=== PATIENT | male | born 1960 | race Caucasian/White ===

== ENCOUNTER 2023-01-08 14:04 | Inpatient (IN) ==
[2023-01-08 14:59] LABS: Basophils # (auto) 0.09 K/uL (0-0.2); Basophils % (auto) 0.7 %; Eosinophils # (auto) 0.08 K/uL (0-0.50); Eosinophils % (auto) 0.7 %; Hematocrit (blood only) 49.4 % (42.0-52.0); Hemoglobin 17.7 g/dl (14.0-18.0); Immature Granulocytes # (auto) 0.05 K/uL (0.01-0.20); Immature Granulocytes % (auto) 0.4 %; Lymphocytes # (auto) 2.53 K/uL (1.2-3.4); Lymphocytes % (auto) 20.7 %; Mean Corpuscular Hemoglobin 30.3 pg (25.0-34.0); Mean Corpuscular Hgb Conc 35.8 g/dL (32.0-36.0); Mean Corpuscular Volume 84.4 fL (80.0-100.0); Mean Platelet Volume 9.8 fL (9.4-12.4); Monocytes # (auto) 0.76 K/uL (0.11-0.59); Monocytes % (auto) 6.2 %; Neutrophils # (auto) 8.72 K/uL (1.40-6.50); Neutrophils % (auto) 71.3 %; Platelet Count 270 K/uL (130-400); RDW Coefficient of Variation 13.4 % (11.5-14.5); RDW Standard Deviation 41.5 fL (36.4-46.3); Red Blood Count 5.85 M/uL (4.70-6.10); White Blood Count 12.23 K/ul (4.8-10.8)
[2023-01-08 15:18] LABS: D Dimer 200 ug/L FEU (0-500)
[2023-01-08 15:32] LABS: Troponin I High Sensitivity 35.8 pg/ml (0-20)
[2023-01-08 15:35] LABS: Albumin Level 4.8 gm/dl (3.4-5.0); Bilirubin,Total 0.9 mg/dl (0.2-1.0); Calcium 9.5 mg/dl (8.6-10.3); Potassium 3.7 mmol/L (3.5-5.1)
--- NOTE | 2023-01-08 15:38 | Emergency Department Note ---
Impression & Plan Non-ST elevated myocardial infarction ED Provider Note INFORMANT: Patient ED PROVIDER(S): Umberto Thayer MD CHIEF COMPLAINT: Chest pain PLAN: Disposition: Admitted Condition: Good Outpatient prescription management: none Referral: None MEDICAL DECISION MAKING: Patient presented because of chest pain. Work-up was initiated. ECG not show any ischemia. Chest x-ray was negative. The patient's CBC and chemistry panel are unremarkable. The patient's LFTs and lipase negative. The patient did have a cardiac troponin performed and this was elevated. Given his chest pain issues and elevated troponin this is concerning for non-ST elevation CT. D-dimer negative. The patient was treated with Nitropaste, aspirin, IV Lopressor, oral metoprolol, and I consulted with cardiology. Discussed the case with Dr. Ge. He recommended anticoagulation with IV heparin, admission and further management in the hospital. Discussed with the patient and family and they were in agreement. [facility] Patient was evaluated in the ER and admitted for further management. Discussed with health care manager After review of the information above and other included data, I feel the patient requires admission. Triage Nursing notes reviewed and agree them. Vital Signs: reviewed and remarkable for mild hypertension Prior /Outside records reviewed: none Differential diagnosis: Cardiac ischemia, aortic dissection, pulmonary embolism, pneumothorax, pneumonia, pericarditis, myocarditis, esophageal rupture, GERD, cholecystitis, pancreatitis, musculoskeletal, as well as other pathologies. Diagnostics, as interpreted by me: ECG: Twelve-lead ECG reveals a sinus tachycardia [address] elevation or depression. No PACs or PVCs. Cardiac Monitoring: Cardiac monitoring ordered by me: The patient was placed on continuous cardiac monitoring and observed. It revealed a normal sinus rhythm at 75 beats per minute without ectopy or evidence of dysrhythmia. Medical decision rules: none Imaging studies: Chest x-ray. Findings: A chest x-ray was performed and revealed no pneumothorax, effusion, infiltrate, pulmonary edema, free air under the diaphragm, or wide mediastinum. Impression: No acute disease. HPI: The patient is a 62 year old male who presents to the Emergency Room with complaints of exertional chest pain. This started this morning around 10 and is now resolved. The patient also notes the following associated symptoms, SOB, palpitations. The patient has rested for relieving factors. Current pain is rated as 0/10. Pt denies LOC, headache, fevers, chills, diaphoresis, visual changes, neck pain, nausea, vomiting, abdominal pain, back pain, melena, hematochezia, urinary symptoms, numbness, weakness, lymphadenopathy, rash, or other complaints. PAST MEDICAL HISTORY: See Below, HTN PAST SURGICAL HISTORY: See Below, SOCIAL HISTORY: See Below, non-smoker HOME MEDICATIONS: See Below ALLERGIES: See Below VITALS: See Below PHYSICAL EXAMINATION: GENERAL: Awake, alert, well-appearing, in no distress HENT: Normocephalic, atraumatic. Oropharynx unremarkable. EYES: Normal conjunctiva. Sclera non-icteric. NECK: Inspection normal. Non-tender. Supple. No nuchal rigidity. FROM. No masses. RESPIRATORY: Clear to auscultation. No wheezes. No rales. Normal respiratory effort. CARDIAC: Normal rate. Normal rhythm. No murmurs. No rubs. Extremities warm and well perfused. Pulses equal. No JVD. GI: Soft, non-distended. No tenderness to palpation. No rebound or guarding. No masses. RECTAL: Deferred. MUSCULOSKELETAL: Atraumatic. Chest examination reveals no tenderness. The back is symmetrical on inspection without obvious abnormality. There is no CVA tenderness to palpation. No joint edema. LOWER EXTREMITIES: Calves are equal size bilaterally and non-tender. No edema. No discoloration. NEURO: Normal sensorium. No sensory or motor deficits noted. SKIN: No rash or jaundice noted. CRITICAL CARE: I have personally spent greater than 30 minutes of critical care time in the direct management of this patient. This includes bedside care, interpretation of diagnostic studies, and testing, discussion with consultants, patient, and family members, and other required patient management activities. This 30 minutes is in excess of all separately billable procedures. Past Med/Surg History Medical History (Updated 01/08/23 @ 22:10 by Umberto Thayer MD) Depression HLD (hyperlipidemia) Surgical History (Updated 01/08/23 @ 17:12 by Ilana Randolph PA-C) No pertinent past surgical history Family History Grandfather (Paternal) , in mid 30s Myocardial infarction Sudden Social History (Updated 01/08/23 @ 17:12 by Ilana Randolph PA-C) Smoking Status: Never smoker Hx Alcohol Use: No Hx Substance Use: No Preferred Language: Surinamese Communication Ability: Effective Companion Caregiver Required: No Beliefs That Will Affect Care: None Current Living Situation: Family Feels Safe at Home: Yes Safety Concerns: Feels Safe At This Time Assistive Devices: None Allergies Allergies Allergy/AdvReac Type Severity Reaction Status Date / Time No Known Allergies Allergy Unverified 01/08/23 15:07 Home Meds Home Medications Medication Instructions Recorded Confirmed Prevagen 1 tab PO QAM 01/08/23 01/08/23 fluoxetine 10 mg capsule 10 mg PO QAM 01/08/23 01/08/23 Results & Data (ED) Vital Signs Vital Signs - 24 hr 01/08/23 14:10 01/08/23 14:28 01/08/23 14:26 Temperature 36.6 C Temperature Source Temporal Artery Scan Pulse Rate 106 H 97 H 93 H Pulse Rate from SpO2 Sensor 94 H Respiratory Rate 18 16 Respiratory Effort / Characteristics Non-Labored Spontaneous Respiratory Depth Normal Respiratory Pattern Regular Blood Pressure 163/107 H Blood Pressure Mean 125 Blood Pressure Position Sitting Pulse Oximetry 95 96 Oxygen Delivery Method Room Air Sepsis Recent Fever Within 48 Hours No Sepsis New/Unexplained Change in Mental Status No Sepsis Action Taken by Nursing No Action Required 01/08/23 14:30 01/08/23 15:00 01/08/23 15:07 Temperature Temperature Source Pulse Rate 94 H 89 94 H Pulse Rate from SpO2 Sensor 95 H 91 H 95 H Respiratory Rate 19 17 20 Respiratory Effort / Characteristics Respiratory Depth Respiratory Pattern Blood Pressure Blood Pressure Mean Blood Pressure Position Pulse Oximetry 95 95 95 Oxygen Delivery Method Sepsis Recent Fever Within 48 Hours Sepsis New/Unexplained Change in Mental Status Sepsis Action Taken by Nursing 01/08/23 15:07 01/08/23 15:44 01/08/23 15:30 Temperature Temperature Source Pulse Rate 94 H Pulse Rate from SpO2 Sensor Respiratory Rate Respiratory Effort / Characteristics Respiratory Depth Respiratory Pattern Blood Pressure 167/104 H 167/104 H 172/113 H Blood Pressure Mean 125 132 Blood Pressure Position Pulse Oximetry Oxygen Delivery Method Sepsis Recent Fever Within 48 Hours Sepsis New/Unexplained Change in Mental Status Sepsis Action Taken by Nursing 01/08/23 15:30 01/08/23 15:49 01/08/23 15:50 Temperature Temperature Source Pulse Rate 95 H 92 H Pulse Rate from SpO2 Sensor 90 92 H Respiratory Rate 18 16 Respiratory Effort / Characteristics Respiratory Depth Respiratory Pattern Blood Pressure 176/112 H Blood Pressure Mean 133 Blood Pressure Position Pulse Oximetry 96 96 Oxygen Delivery Method Sepsis Recent Fever Within 48 Hours Sepsis New/Unexplained Change in Mental Status Sepsis Action Taken by Nursing 01/08/23 16:00 01/08/23 16:00 01/08/23 14:46 Temperature Temperature Source Pulse Rate 77 80 Pulse Rate from SpO2 Sensor 77 Respiratory Rate 17 Respiratory Effort / Characteristics Respiratory Depth Respiratory Pattern Blood Pressure 157/108 H Blood Pressure Mean 124 Blood Pressure Position Pulse Oximetry 95 Oxygen Delivery Method Sepsis Recent Fever Within 48 Hours Sepsis New/Unexplained Change in Mental Status Sepsis Action Taken by Nursing Laboratory Data 01/08/23 14:22 01/08/23 14:22 Lab Results 01/08/23 01/08/23 01/08/23 Range/Units 14:22 14:22 14:22 WBC 12.23 H (4.8-10.8) K/ul RBC 5.85 (4.70-6.10) M/uL Hgb 17.7 (14.0-18.0) g/dl Hct 49.4 (42.0-52.0) % MCV 84.4 (80.0-100.0) fL MCH 30.3 (25.0-34.0) pg MCHC 35.8 (32.0-36.0) g/dL RDW Std Deviation 41.5 (36.4-46.3) fL RDW Coeff of Georgette 13.4 (11.5-14.5) % Plt Count 270 (130-400) K/uL MPV 9.8 (9.4-12.4) fL Immature Gran % (Auto) 0.4 % Neut % (Auto) 71.3 % Lymph % (Auto) 20.7 % [place] % (Auto) 6.2 % Eos % (Auto) 0.7 % Baso % (Auto) 0.7 % Neut # (Auto) 8.72 H (1.40-6.50) K/uL Lymph # (Auto) 2.53 (1.2-3.4) K/uL [place] # (Auto) 0.76 H (0.11-0.59) K/uL Eos # (Auto) 0.08 (0-0.50) K/uL Baso # (Auto) 0.09 (0-0.2) K/uL Immature Gran # (Auto) 0.05 (0.01-0.20) K/uL D-Dimer 200 (0-500) ug/L FEU Sodium 137 (136-145) mmol/L Potassium 3.7 (3.5-5.1) mmol/L Chloride 103 (98-107) mmol/L Carbon Dioxide 25 (21-32) mmol/L Anion Gap 9 (3-11) BUN 14 (6-23) mg/dl Creatinine 0.90 (0.6-1.4) mg/dl Est Cr Clr Drug Dosing 90.3 ml/min Est GFR ( Amer) 104.2 ml/min Est GFR (Non-Af Amer) 89.9 ml/min BUN/Creatinine Ratio 15.6 (10-20) Glucose 106 H (70-99(Fasting)) mg/dl Calcium 9.5 (8.6-10.3) mg/dl Total Bilirubin 0.9 (0.2-1.0) mg/dl AST 19 (13-39) U/L ALT 23 (7-52) U/L Alkaline Phosphatase 66 (34-104) U/L Troponin I High Sens 35.8 H (0-20) pg/ml Total Protein 7.9 (6.0-8.3) gm/dl Albumin 4.8 (3.4-5.0) gm/dl Globulin 3.1 (2.5-4.0) gm/dl Albumin/Globulin Ratio 1.5 (0.9-2) Lipase 13 (11-82) U/L SARS-CoV-2, RNA, NAAT (NEGATIVE) 01/08/23 Range/Units 15:08 WBC (4.8-10.8) K/ul RBC (4.70-6.10) M/uL Hgb (14.0-18.0) g/dl Hct (42.0-52.0) % MCV (80.0-100.0) fL MCH (25.0-34.0) pg MCHC (32.0-36.0) g/dL RDW Std Deviation (36.4-46.3) fL RDW Coeff of Georgette (11.5-14.5) % Plt Count (130-400) K/uL MPV (9.4-12.4) fL Immature Gran % (Auto) % Neut % (Auto) % Lymph % (Auto) % [place] % (Auto) % Eos % (Auto) % Baso % (Auto) % Neut # (Auto) (1.40-6.50) K/uL Lymph # (Auto) (1.2-3.4) K/uL [place] # (Auto) (0.11-0.59) K/uL Eos # (Auto) (0-0.50) K/uL Baso # (Auto) (0-0.2) K/uL Immature Gran # (Auto) (0.01-0.20) K/uL D-Dimer (0-500) ug/L FEU Sodium (136-145) mmol/L Potassium (3.5-5.1) mmol/L Chloride (98-107) mmol/L Carbon Dioxide (21-32) mmol/L Anion Gap (3-11) BUN (6-23) mg/dl Creatinine (0.6-1.4) mg/dl Est Cr Clr Drug Dosing ml/min Est GFR ( Amer) ml/min Est GFR (Non-Af Amer) ml/min BUN/Creatinine Ratio (10-20) Glucose (70-99(Fasting)) mg/dl Calcium (8.6-10.3) mg/dl Total Bilirubin (0.2-1.0) mg/dl AST (13-39) U/L ALT (7-52) U/L Alkaline Phosphatase (34-104) U/L Troponin I High Sens (0-20) pg/ml Total Protein (6.0-8.3) gm/dl Albumin (3.4-5.0) gm/dl Globulin (2.5-4.0) gm/dl Albumin/Globulin Ratio (0.9-2) Lipase (11-82) U/L SARS-CoV-2, RNA, NAAT NEGATIVE (NEGATIVE) Administered Medications Heparin Sodium/Dextrose (Heparin Sodium/Dextrose) 25,000 units in 500 mls @ 18 mls/hr IV .Q24H [facility]; Protocol Stop: 02/07/23 16:14 Last Titration: 01/08/23 18:52 Dose: 900 units/hr, 18 mls/hr Documented By: CRISTIAN Co-signed By: ABL Admin: 01/08/23 16:41 Dose: 900 units/hr, 18 mls/hr Documented By: [id number] Co-signed By: GEMA Metoprolol Tartrate (Metoprolol Tartrate 25 Mg Tab) 25 mg PO BID [facility] Stop: 02/07/23 20:59 Last Admin: 01/08/23 20:28 Dose: 25 mg Documented By: ABL Discontinued Medications Aspirin (Aspirin Chew 324 Mg) 324 mg PO NOW STA Stop: 01/08/23 15:41 Last Admin: 01/08/23 15:44 Dose: 324 mg Documented By: [id number] Heparin Sodium (Porcine) (Heparin Sod (Porcine) 1000 Unit/Ml) 1 units IV NOW ONE Stop: 01/08/23 16:13 Last Admin: 01/08/23 16:45 Dose: Not Given Documented By: [id number] Heparin Sodium (Porcine) (Heparin Sod (Porcine) 1000 Unit/Ml) 4,000 units IV NOW ONE; Protocol Stop: 01/08/23 16:46 Last Admin: 01/08/23 16:45 Dose: 4,000 units Documented By: [id number] Co-signed By: GEMA Metoprolol Tartrate (Metoprolol Tartrate 1 Mg/Ml Vial) 2.5 mg IV NOW STA Stop: 01/08/23 15:41 Last Admin: 01/08/23 15:44 Dose: 2.5 mg Documented By: [id number] Metoprolol Tartrate (Metoprolol Tartrate 25 Mg Tab) 25 mg PO NOW STA Stop: 01/08/23 15:57 Last Admin: 01/08/23 16:31 Dose: 25 mg Documented By: [id number] Nitroglycerin (Nitroglycerin 2% Ointment 30gm Tube) 0.5 inch EXT NOW STA Stop: 01/08/23 15:41 Last Admin: 01/08/23 15:45 Dose: 0.5 inch Documented By: [id number] Imaging Data Radiologist's Impression: Chest X-Ray 01/08/23 14:46 XR chest 1V portable HISTORY: 62 years-old Male Chest pain, nonspecific COMPARISON: None TECHNIQUE: AP view of the chest FINDINGS: Cardiac silhouette is upper limits of normal in size. Mild subsegmental bibasilar atelectasis. There is no pneumothorax, pleural effusion, lobar airspace consolidation or overt pulmonary edema. Degenerative changes of the shoulders and spine. IMPRESSION: No acute process. ACT 112: Negative or not required by law. The above report was generated using voice recognition software. It may contain grammatical, syntax or spelling errors. Electronically signed by: Roddy Atkins M.D. 01/08/2023 3:35 PM Discharge Plan Visit Data Chief Complaint: Cardiac Assessment Stated Complaint: HIGH HEART RATE, CHEST PAIN ED Provider: Umberto Thayer Discharge Problem: Non-ST elevated myocardial infarction Patient Disposition: Admitted As Inpatient Discharge Instructions Interventions: ED Discharge Assessment Last Done: 01/08/23 18:15
[2023-01-08] MEDS ORDERED: ASPIRIN CHEW 324 MG PO STA (15:40)
[2023-01-08] MEDS ORDERED: METOPROLOL TARTRATE 1 MG/ML VIAL IV STA (15:40)
[2023-01-08] MEDS ORDERED: NITROGLYCERIN 2% OINTMENT 30GM TUBE EXT STA (15:40)
[2023-01-08 15:41] LABS: Albumin Globulin Ratio 1.5 (0.9-2); BUN Creatinine Ratio 15.6 (10-20); Creatinine Clr Calc Pharmacy 90.3 ml/min; Est GFR (African American) 104.2 ml/min; Est GFR (Non-African American) 89.9 ml/min; Globulin 3.1 gm/dl (2.5-4.0); Total Protein 7.9 gm/dl (6.0-8.3)
[2023-01-08] MEDS ORDERED: METOPROLOL TARTRATE 25 MG TAB PO STA (15:56)
[2023-01-08] MEDS ORDERED: Heparin IV Adult Wt-Based Low-Dose WITH Bolus Protocol STA (15:57)
[2023-01-08] MEDS ORDERED: HEPARIN SODIUM/DEXTROSE 25,000 UNITS/500 ML BAG IV SCH (16:15)
[2023-01-08] MEDS: HEPARIN SOD (PORCINE) 1000 UNIT/ML IV ONE ×2 (16:43→16:45)
[2023-01-08] MEDS ORDERED: HEPARIN SOD (PORCINE) 1000 UNIT/ML IV ONE (16:45)
--- NOTE | 2023-01-08 16:56 | History & Physical Report ---
Date of Service January 08, 2023 Assessment & Plan (1) Chest pain, exertional: (2) Elevated troponin: (3) Elevated blood pressure reading: (4) HLD (hyperlipidemia): (5) Depression: Plan This is a 62-year-old male who has significant past medical history of hyperlipidemia and recurrent major depressive disorder who presents to ED secondary to exertional chest pain x2 to 3 days. Initial EKG sinus tach w/o ST t wave changes, trop mildly bumped @35.8. Significant elevation in blood pressure. Pt was to have outpatient stress test in a few weeks. Will admit for possible NSTEMI. Exertional chest pain, now resolved Elevated blood pressure reading Elevated troponin admit to PCU pt started on IV heparin in ED due to concern for NSTEMI pt chest pain free trend trops, ecg, prn nitro echocardiogram start metoprolol tartrate 25mg bid per cards monitor blood pressure closely, in OP setting BP 130s-140s/90s, likely will need antihypertensive, will wait til pt gets to floor and monitor NPO after midnight for possible cath HLD pt not on antihyperlipidemic outpt labs show elevated total chol and LDL, likely to need statin obtain fasting lipid panel in a.m. Depression mood stable continue prozac DVT ppx: IV heparin Dispo: PCU, possible cath in a.m. FULL CODE PCP: Nyasia A total of 75 minutes was spent with greater than 50% of that time personally viewing all current laboratory work and diagnostic imaging studies obtained in the ED. Additionally, I was able to view the patients past medication reconciliation and history with direct visualization in the patients chart. Included in the time above, a portion of that time was spent assessing the patient while discussing and collaborating with specialists, if necessary, and making medical decision making on treatment plan. All of the above was collaborated with Dr. Duque. Please see addendum for further details. History of Present Illness Chief Complaint: exertional chest pain x 2-3 days. Primary Care Provider: Wilman Murrell MD This is a 62-year-old male who has significant past medical history of hyperlipidemia and recurrent major depressive disorder who presents to ED secondary to exertional chest pain x2 to 3 days. Patient's father is at bedside. He states that 2 to 3 weeks ago he developed URI symptoms. He was seen and evaluated by PCP and completed a course of azithromycin approximately 5 days ago. He states over the last 2 to 3 days he has been experiencing exertional chest pain. Typically onset will begin after walking approximately 50 feet and chest pain will resolve whenever he sits for several seconds. Chest pain never occurs at rest. Chest pain is substernal and left side of his chest but nonradiating. Currently he is chest pain-free and describes it as a, "pressure." He does get occasional shortness of breath but not consistently with exertion. He denies any fever, chills, sweats, lightheadedness, dizziness, nausea, diaphoresis, URI symptoms, abdominal pain, changes bowel or urinary habits. He is otherwise fairly healthy at baseline and only takes an antidepressant. He denies any family history of heart disease. He is a non- smoker and a nondrinker. His grandfather did pass away in his 30s of heart attack. His father also has a pacemaker and atrial fibrillation. In ED patient remained hemodynamically stable although he was significantly hypertensive and tachycardic. He did have mild elevation in troponin at 35.8. Chest x-ray was negative for acute process. EKG revealed sinus tachycardia but no ST or T wave change. In ED he received full-strength aspirin, 2.5 mg of IV Lopressor, nitroglycerin paste and started on heparin drip. Allergies Allergy/AdvReac Type Severity Reaction Status Date / Time No Known Allergies Allergy Unverified 01/08/23 15:07 Home Medications Medication Instructions Recorded Confirmed Type Prevagen 1 tab PO QAM 01/08/23 01/08/23 History fluoxetine 10 mg capsule 10 mg PO QAM 01/08/23 01/08/23 History Past Med/Surg History Medical History (Updated 01/08/23 @ 17:29 by Ilana Randolph PA-C) Depression HLD (hyperlipidemia) Surgical History (Updated 01/08/23 @ 17:12 by Ilana Randolph PA-C) No pertinent past surgical history Family History Grandfather (Paternal) , in mid 30s Myocardial infarction Sudden Social History (Updated 01/08/23 @ 17:12 by Ilana Randolph PA-C) Smoking Status: Never smoker Hx Alcohol Use: No Hx Substance Use: No Preferred Language: Cape Verdean Feels Safe at Home: Yes Review of Systems Review of Systems: All systems reviewed & are unremarkable except as noted in HPI & below Physical Exam Physical Exam: Constitutional: WD/WN, vitals as above, NAD, sitting up in bed, pleasant, conversing easily Head: Normocephalic, Atraumatic Eyes: PERRL, conjunctivae normal, anicteric sclerae ENMT: external ear and nose normal, oropharynx normal Neck: trachea midline, no thyromegaly normal visual inspection Respiratory: normal respiratory effort, lungs clear to auscultation, no wheeze, rales, rhonchi. Normal insp/exp effort, no accessory muscle use Cardiovascular: RRR, no murmur, no edema Vessels: no JVD or carotid bruit Chest: normal inspection of chest, chest pain nonreproducible Abdomen: normal bowel sounds, soft, nontender, no hepatosplenomegaly Musculoskeletal: no cyanosis or clubbing, extremities motor strength 5/5 Skin: no rashes, warm and dry normal turgor Neurologic: PERRL, EOMI, accommodation nl, no face palsy, no dysarthria CN's II-XI intact bilaterally and moves all extremities Psychiatric: A+Ox3, euthymic affect Lymphatic: no cervical or axillary lymphadenopathy : deferred Results & Data Results & Data Vital Signs (Past 12 Hours) Vital Signs Temp Pulse Resp BP Pulse Ox O2 Del Method 01/08/23 16:00 77 17 95 01/08/23 16:00 157/108 H 01/08/23 15:50 176/112 H 01/08/23 15:49 92 H 16 96 01/08/23 15:30 95 H 18 96 01/08/23 15:30 172/113 H 01/08/23 15:44 94 H 167/104 H 01/08/23 15:07 167/104 H 01/08/23 15:07 94 H 20 95 01/08/23 15:00 89 17 95 01/08/23 14:30 94 H 19 95 01/08/23 14:26 93 H 16 96 01/08/23 14:28 97 H 01/08/23 14:10 36.6 C 106 H 18 163/107 H 95 Room Air Diagnostic Findings Chest X-Ray 01/08/23 14:46 XR chest 1V portable HISTORY: 62 years-old Male Chest pain, nonspecific COMPARISON: None TECHNIQUE: AP view of the chest FINDINGS: Cardiac silhouette is upper limits of normal in size. Mild subsegmental bibasilar atelectasis. There is no pneumothorax, pleural effusion, lobar airspace consolidation or overt pulmonary edema. Degenerative changes of the s houlders and spine. IMPRESSION: No acute process. ACT 112: Negative or not required by law. The above report was generated using voice recognition software. It may contain grammatical, syntax or spelling errors. Electronically signed by: Roddy Atkins M.D. 01/08/2023 3:35 PM Medications Administered Medication List Heparin Sodium/Dextrose (Heparin Sodium/Dextrose) 25,000 units in 500 mls @ 18 mls/hr IV .Q24H [facility]; Protocol Stop: 02/07/23 16:14 Last Admin: 01/08/23 16:41 Dose: 900 units/hr, 18 mls/hr Documented By: [id number] Co-signed By: GEMA Discontinued Medications Aspirin (Aspirin Chew 324 Mg) 324 mg PO NOW STA Stop: 01/08/23 15:41 Last Admin: 01/08/23 15:44 Dose: 324 mg Documented By: [id number] Heparin Sodium (Porcine) (Heparin Sod (Porcine) 1000 Unit/Ml) 1 units IV NOW ONE Stop: 01/08/23 16:13 Last Admin: 01/08/23 16:45 Dose: Not Given Documented By: [id number] Heparin Sodium (Porcine) (Heparin Sod (Porcine) 1000 Unit/Ml) 4,000 units IV NOW ONE; Protocol Stop: 01/08/23 16:46 Last Admin: 01/08/23 16:45 Dose: 4,000 units Documented By: [id number] Co-signed By: GEMA Metoprolol Tartrate (Metoprolol Tartrate 1 Mg/Ml Vial) 2.5 mg IV NOW STA Stop: 01/08/23 15:41 Last Admin: 01/08/23 15:44 Dose: 2.5 mg Documented By: [id number] Metoprolol Tartrate (Metoprolol Tartrate 25 Mg Tab) 25 mg PO NOW STA Stop: 01/08/23 15:57 Last Admin: 01/08/23 16:31 Dose: 25 mg Documented By: [id number] Nitroglycerin (Nitroglycerin 2% Ointment 30gm Tube) 0.5 inch EXT NOW STA Stop: 01/08/23 15:41 Last Admin: 01/08/23 15:45 Dose: 0.5 inch Documented By: [id number] ECG Rate (beats per minute): 103 Rhythm: sinus tachycardia Additional Comments: qtc 450ms COVID-19 Results Results COVID-19 Adm Lab Results: RBC 5.85 M/uL (4.70-6.10) 01/08/23 WBC 12.23 K/ul (4.8-10.8) H 01/08/23 Hgb 17.7 g/dl (14.0-18.0) 01/08/23 Hct 49.4 % (42.0-52.0) 01/08/23 Plt Count 270 K/uL (130-400) 01/08/23 Neutrophils (%) (Auto) 71.3 % 01/08/23 Lymphocytes (%) (Auto) 20.7 % 01/08/23 Monocytes # (Auto) 0.76 K/uL (0.11-0.59) H 01/08/23 Eosinophils # (Auto) 0.08 K/uL (0-0.50) 01/08/23 Immature Granulocyte % (Auto) 0.4 % 01/08/23 Neutrophils # (Auto) 8.72 K/uL (1.40-6.50) H 01/08/23 Lymphocytes # (Auto) 2.53 K/uL (1.2-3.4) 01/08/23 Monocytes # (Auto) 0.76 K/uL (0.11-0.59) H 01/08/23 Eosinophils # (Auto) 0.08 K/uL (0-0.50) 01/08/23 Basophils # (Auto) 0.09 K/uL (0-0.2) 01/08/23 Immature Granulocyte # (Auto) 0.05 K/uL (0.01-0.20) 3 Na 137 mmol/L (136-145) 01/08/23 K 3.7 mmol/L (3.5-5.1) 01/08/23 Cl 103 mmol/L (98-107) 01/08/23 CO2 25 mmol/L (21-32) 01/08/23 Anion Gap 9 (3-11) 01/08/23 BUN 14 mg/dl (6-23) 01/08/23 Creatinine 0.90 mg/dl (0.6-1.4) 01/08/23 BUN/Creatinine Ratio 15.6 (10-20) 01/08/23 Glucose Level 106 mg/dl (70-99(Fasting)) H 01/08/23 Ca 9.5 mg/dl (8.6-10.3) 01/08/23 Total Bilirubin 0.9 mg/dl (0.2-1.0) 01/08/23 AST/SGOT 19 U/L (13-39) 01/08/23 ALT/SGPT 23 U/L (7-52) 01/08/23 Alkaline Phosphatase 66 U/L (34-104) 01/08/23 Total Protein 7.9 gm/dl (6.0-8.3) 01/08/23 Albumin 4.8 gm/dl (3.4-5.0) 01/08/23 Globulin 3.1 gm/dl (2.5-4.0) 01/08/23 Albumin/Globulin Ratio 1.5 (0.9-2) 01/08/23 CRP Pending 01/08/23 D-Dimer 200 ug/L FEU (0-500) 01/08/23 SARS-CoV-2, RNA, NAAT NEGATIVE (NEGATIVE) 01/08/23 Chest X-Ray 01/08/23 Code Status & VTE Plan Code Status FULL CODE VTE Prophylaxis Plan VTE Prophylaxis will be ordered: No Reason for no VTE drug order: Treatment not indicated Supervising Physician Co-Signing Physician Notes Patient was seen and examined at bedside with Ilana ARMSTRONG in presence of his dad. Chart reviewed. Case discussed with Ilana and agree with the documentation above with regards to HPI, exam and A/P. In summary, this is a 62 year old male who is being admitted for concern for UA/NSTEMI. On exam, lying comfortably in bed, not in distress. AAO, chest clear, heart sounds normal, abd benign, neurologically intact, no edema. Trop slightly elevated. Given aspirin, BB, nitropaste in ED. He is being started on heparin drip with serial trop and tele per cardio recommendation with plan for cardiac cath tomorrow. NPO after midnight. Rest as per the note above.
[2023-01-08] MEDS ORDERED: ONDANSETRON INJ 2 MG/ML 2 ML VIAL IV PRN (18:33)
[2023-01-08] MEDS ORDERED: ACETAMINOPHEN 325 MG TAB PO PRN (18:33)
[2023-01-08] MEDS ORDERED: ALUMINUM/MAGNESIUM SUSP 30 ML UDC PO PRN (18:33)
[2023-01-08] MEDS ORDERED: MAGNESIUM HYDROXIDE SUSP 30 ML UDC PO PRN (18:33)
[2023-01-08] MEDS ORDERED: POLYETHYLENE (MIRALAX) 17 GM PACK PO PRN (18:33)
[2023-01-08] MEDS ORDERED: NITROGLYCERIN SL 0.4 MG/TAB TAB SL PRN (18:33)
[2023-01-08] MEDS: METOPROLOL TARTRATE 25 MG TAB PO SCH (20:28)
[2023-01-09 01:57] LABS: Partial Thromboplastin Ratio 1.3; Partial Thromboplastin Time 35.5 Seconds (21.0-31.0)
[2023-01-09] MEDS ORDERED: HEPARIN SOD (PORCINE) 1000 UNIT/ML IV ONE ×2 (02:30)
[2023-01-09] MEDS: METOPROLOL TARTRATE 25 MG TAB PO SCH ×2 (08:14→20:02)
[2023-01-09] MEDS: FLUoxetine HCL 10 MG CAP PO SCH (08:14)
[2023-01-09 08:49] LABS: Basophils # (auto) 0.07 K/uL (0-0.2); Basophils % (auto) 0.6 %; Eosinophils # (auto) 0.05 K/uL (0-0.50); Eosinophils % (auto) 0.4 %; Hematocrit (blood only) 43.8 % (42.0-52.0); Hemoglobin 15.8 g/dl (14.0-18.0); Immature Granulocytes # (auto) 0.04 K/uL (0.01-0.20); Immature Granulocytes % (auto) 0.3 %; Lymphocytes % (auto) 20.9 %; Mean Corpuscular Hemoglobin 30.8 pg (25.0-34.0); Mean Corpuscular Hgb Conc 36.1 g/dL (32.0-36.0); Mean Corpuscular Volume 85.4 fL (80.0-100.0); Mean Platelet Volume 9.8 fL (9.4-12.4); Monocytes # (auto) 0.76 K/uL (0.11-0.59); Monocytes % (auto) 6.6 %; Neutrophils # (auto) 8.16 K/uL (1.40-6.50); Neutrophils % (auto) 71.2 %; Platelet Count 220 K/uL (130-400); RDW Coefficient of Variation 13.3 % (11.5-14.5); RDW Standard Deviation 41.7 fL (36.4-46.3); Red Blood Count 5.13 M/uL (4.70-6.10); White Blood Count 11.48 K/ul (4.8-10.8)
--- NOTE | 2023-01-09 09:04 | Pre Anesthesia Assessment ---
Date of Service January 09, 2023 Pre Sedation Assessment Vital Signs Temp Pulse Pulse Resp BP BP Pulse Ox 01/09/23 07:53 36.8 C 77 18 131/77 94 01/08/23 22:04 69 01/08/23 23:36 36.7 C 73 19 118/78 94 01/08/23 20:30 36.5 C 75 15 147/82 H 95 01/08/23 14:46 80 01/08/23 18:35 36.8 C 78 18 162/90 H 94 01/08/23 17:30 77 19 94 01/08/23 17:30 156/103 H 01/08/23 17:00 81 16 94 01/08/23 17:00 148/102 H 01/08/23 16:30 91 H 21 96 01/08/23 16:30 170/111 H 01/08/23 16:00 77 17 95 01/08/23 16:00 157/108 H 01/08/23 15:50 176/112 H 01/08/23 15:49 92 H 16 96 01/08/23 15:30 95 H 18 96 01/08/23 15:30 172/113 H 01/08/23 15:44 94 H 167/104 H 01/08/23 15:07 167/104 H 01/08/23 15:07 94 H 20 95 01/08/23 15:00 89 17 95 01/08/23 14:30 94 H 19 95 01/08/23 14:26 93 H 16 96 01/08/23 14:28 97 H 01/08/23 14:10 36.6 C 106 H 18 163/107 H 95 O2 Del Method 01/09/23 07:53 Room Air 01/08/23 22:04 01/08/23 23:36 Room Air 01/08/23 20:30 Room Air 01/08/23 14:46 01/08/23 18:35 Room Air 01/08/23 17:30 01/08/23 17:30 01/08/23 17:00 01/08/23 17:00 01/08/23 16:30 01/08/23 16:30 01/08/23 16:00 01/08/23 16:00 01/08/23 15:50 01/08/23 15:49 01/08/23 15:30 01/08/23 15:30 01/08/23 15:44 01/08/23 15:07 01/08/23 15:07 01/08/23 15:00 01/08/23 14:30 01/08/23 14:26 01/08/23 14:28 01/08/23 14:10 Room Air Cardiovascular + regular rate and + regular rhythm + S1 normal and + S2 normal; no murmur + femoral pulses present and + radial pulses present; no JVD and no carotid bruit no edema Respiratory + respiratory effort normal; no respiratory distress, no labored breathing and no retractions Pre-Sedation Airway Assessment Smoking Status: Never smoker Hx Sleep Apnea: No Hx Difficult Intubation: No Mallampati Class: II ASA: ASA4 NPO Status Date of Last Intake of Fluids: 01/08/23 Date of Last Intake of Solid Food: 01/08/23 Procedure Planning Contraindications for Sedation: none Current Medications Reviewed: Yes Notes The planned sedation has been discussed with the patient. Informed Consent was obtained. I have identified the patient, determined the appropriateness of sedation and have assessed the patient immediately prior to the procedure. All medicine(s) and interventions are by my order.
[2023-01-09 09:07] LABS: Albumin Globulin Ratio 1.6 (0.9-2); Albumin Level 4.2 gm/dl (3.4-5.0); BUN Creatinine Ratio 18.3 (10-20); Bilirubin,Total 0.9 mg/dl (0.2-1.0); Chol HDL Ratio 6.4 (0-5); Est GFR (African American) 108.3 ml/min; Est GFR (Non-African American) 93.5 ml/min; Globulin 2.6 gm/dl (2.5-4.0); Potassium 3.8 mmol/L (3.5-5.1); Total Protein 6.8 gm/dl (6.0-8.3)
--- NOTE | 2023-01-09 09:12 | Cardiology Consultation ---
Date of Consultation January 09, 2023 Assessment & Plan (1) Non-ST elevated myocardial infarction: (2) Dyslipidemia, goal LDL below 70: (3) Elevated blood pressure reading: Plan Risk, benefits, and alternatives to cardiac catheterization discussed. Patient voiced understanding and is agreeable to proceed. Administer 81 mg of aspirin and 80 mg of oral atorvastatin this morning. IV heparin will be placed on hold with additional anticoagulation to be administered during procedure. All questions answered to the satisfaction of both the patient and his family members. Further recommendations pending result of cardiac catheterization. History of Present Illness Reason for Consultation: Chest pain, possible NSTEMI Requesting Physician: Dr. Marroquin Attending Physician: Eduard Rosario MD History of Present Illness 62-year-old male presents to the emergency department with chest discomfort. Patient describes chest pressure and tightness with exertion. Notes symptoms when pushing his lawn more as well as walking briskly. Symptoms began approx imately 1 week ago. No resting chest pain. Denies orthopnea, PND, or lower extremity edema. Recently treated for upper respiratory tract infection with azithromycin. Cough, head congestion, and fatigue have improved. High-sensitivity troponins trending upward overnight. Currently pain-free. Telemetry reveals sinus rhythm without dysrhythmia. Preliminary review of bedside 2D transthoracic echocardiogram demonstrates mild posterior wall hypokinesis with preserved LV systolic function. No significant valvular pathology. Allergies Allergy/AdvReac Type Severity Reaction Status Date / Time No Known Allergies Allergy Unverified 01/08/23 15:07 Home Medications Medication Instructions Recorded Confirmed Type Prevagen 1 tab PO QAM 01/08/23 01/08/23 History fluoxetine 10 mg capsule 10 mg PO QAM 01/08/23 01/08/23 History Patient History Medical History Depression HLD (hyperlipidemia) Surgical History No pertinent past surgical history Family History Grandfather (Paternal) , in mid 30s Myocardial infarction Sudden Social History Smoking Status: Never smoker Hx Alcohol Use: No Hx Substance Use: No Preferred Language: Malay Communication Ability: Effective Triage Assistant Required: No Beliefs That Will Affect Care: None Current Living Situation: Family Feels Safe at Home: Yes Safety Concerns: Feels Safe At This Time Assistive Devices: None Review of Systems Review of Systems: All systems reviewed & are unremarkable except as noted in Subjective Physical Exam Constitutional: well nourished; no acute distress Respiratory: normal respiratory effort; no respiratory distress, no labored breathing and no retractions Auscultation: lungs clear to auscultation bilaterally; no crackles, no rales, no rhonchi and no wheezes Cardiovascular: Rate/Rhythm: regular rate and regular rhythm Heart Sounds: normal S1 and normal S2; no murmur Vessels: femoral pulses present and radial pulses present; no JVD and no carotid bruit Gastrointestinal (Abdomen): Inspection/Auscultation: abdomen normal to inspection and normal bowel sounds; abdomen not distended Percussion/Palpation: abdomen soft; abdomen nontender, no guarding and abdomen not rigid Neurologic: CN's II-XI intact bilaterally; no focal motor deficits Motor/Sensory: no tremor Psychiatric: A+Ox3, euthymic affect Results & Data Vital Signs (Past 12 Hours) Vital Signs Temp Pulse Pulse Resp BP Pulse Ox O2 Del Method 01/09/23 07:53 36.8 C 77 18 131/77 94 Room Air 01/08/23 22:04 69 01/08/23 23:36 36.7 C 73 19 118/78 94 Room Air Laboratory Results Cardiac Enzymes 01/08/23 01/08/23 01/09/23 Range/Units 14:22 17:30 00:54 AST 19 (13-39) U/L Troponin I High Sens 35.8 H 59.6 H* D 206.1 H* D (0-20) pg/ml 01/09/23 Range/Units 08:38 AST 16 (13-39) U/L Troponin I High Sens (0-20) pg/ml Coagulation 01/09/23 Range/Units 00:54 APTT 35.5 H (21.0-31.0) Seconds Lipids 01/09/23 Range/Units 08:38 Triglycerides 117 (0-150) mg/dl Cholesterol 243 H (0-200) mg/dl HDL Cholesterol 38 mg/dl Cholesterol/HDL Ratio 6.4 H (0-5) CBC 01/08/23 01/09/23 Range/Units 14:22 08:21 WBC 12.23 H 11.48 H (4.8-10.8) K/ul RBC 5.85 5.13 (4.70-6.10) M/uL Hgb 17.7 15.8 (14.0-18.0) g/dl Hct 49.4 43.8 (42.0-52.0) % Plt Count 270 220 (130-400) K/uL Neut # (Auto) 8.72 H 8.16 H (1.40-6.50) K/uL Lymph # (Auto) 2.53 2.40 (1.2-3.4) K/uL [place] # (Auto) 0.76 H 0.76 H (0.11-0.59) K/uL Eos # (Auto) 0.08 0.05 (0-0.50) K/uL Baso # (Auto) 0.09 0.07 (0-0.2) K/uL Comprehensive Metabolic Panel 01/08/23 01/09/23 Range/Units 14:22 08:38 Sodium 137 137 (136-145) mmol/L Potassium 3.7 3.8 (3.5-5.1) mmol/L Chloride 103 104 (98-107) mmol/L Carbon Dioxide 25 28 (21-32) mmol/L BUN 14 15 (6-23) mg/dl Creatinine 0.90 0.82 (0.6-1.4) mg/dl Glucose 106 H 98 (70-99(Fasting)) mg/dl Calcium 9.5 9.0 (8.6-10.3) mg/dl AST 19 16 (13-39) U/L ALT 23 17 (7-52) U/L Alkaline Phosphatase 66 51 (34-104) U/L Total Protein 7.9 6.8 (6.0-8.3) gm/dl Albumin 4.8 4.2 (3.4-5.0) gm/dl Intake and Output 01/08/23 01/09/23 01/09/23 22:59 06:59 14:59 Intake Total 39.3 / 173.7 134.4 / 173.7 99.75 / 99.75 Balance 39.3 / 173.7 134.4 / 173.7 99.75 / 99.75 Intake: IV 39.3 / 173.7 134.4 / 173.7 99.75 / 99.75 Heparin Sodium/Dextrose 25,000 39.3 / 173.7 134.4 / 173.7 99.75 / 99.75 units In 500 ml @ 1,050 UNITS/ HR 21 mls/hr IV .[id number] [facility] Rx #:[id number] Other: Other Intake Source NPO Weight 86.2 kg Weight Measurement Method Built in [facility]
[2023-01-09] MEDS ORDERED: ASPIRIN 81 MG CHEW ONE (09:23)
[2023-01-09 09:30] LABS: Partial Thromboplastin Ratio 1.6
[2023-01-09 09:38] LABS: Partial Thromboplastin Time 44.9 Seconds (21.0-31.0)
--- NOTE | 2023-01-09 10:42 | Post Anesthesia Assessment ---
Date of Service January 09, 2023 Post Sedation Assessment Vital Signs Temp Pulse Pulse Resp BP BP Pulse Ox 01/09/23 08:00 70 01/09/23 07:53 36.8 C 77 18 131/77 94 01/08/23 22:04 69 01/08/23 23:36 36.7 C 73 19 118/78 94 01/08/23 20:30 36.5 C 75 15 147/82 H 95 01/08/23 14:46 80 01/08/23 18:35 36.8 C 78 18 162/90 H 94 01/08/23 17:30 77 19 94 01/08/23 17:30 156/103 H 01/08/23 17:00 81 16 94 01/08/23 17:00 148/102 H 01/08/23 16:30 91 H 21 96 01/08/23 16:30 170/111 H 01/08/23 16:00 77 17 95 01/08/23 16:00 157/108 H 01/08/23 15:50 176/112 H 01/08/23 15:49 92 H 16 96 01/08/23 15:30 95 H 18 96 01/08/23 15:30 172/113 H 01/08/23 15:44 94 H 167/104 H 01/08/23 15:07 167/104 H 01/08/23 15:07 94 H 20 95 01/08/23 15:00 89 17 95 01/08/23 14:30 94 H 19 95 01/08/23 14:26 93 H 16 96 01/08/23 14:28 97 H 01/08/23 14:10 36.6 C 106 H 18 163/107 H 95 O2 Del Method 01/09/23 08:00 01/09/23 07:53 Room Air 01/08/23 22:04 01/08/23 23:36 Room Air 01/08/23 20:30 Room Air 01/08/23 14:46 01/08/23 18:35 Room Air 01/08/23 17:30 01/08/23 17:30 01/08/23 17:00 01/08/23 17:00 01/08/23 16:30 01/08/23 16:30 01/08/23 16:00 01/08/23 16:00 01/08/23 15:50 01/08/23 15:49 01/08/23 15:30 01/08/23 15:30 01/08/23 15:44 01/08/23 15:07 01/08/23 15:07 01/08/23 15:00 01/08/23 14:30 01/08/23 14:26 01/08/23 14:28 01/08/23 14:10 Room Air Recovery Score Activity: Moves 4 extremities Respiration: Deep Breath/Cough Circulation: +/-20% PreAnes Value Consciousness: Arouseable (by name) Discharge Sedation Level of Care: Phase I Post Sedation Plan On clinical assessment, the patient appears to have tolerated the sedation without complications. Patient is recovering as anticipated. Patient will continue to be monitored by nursing and may be discharged when sedation discharge criteria are met per below protocol. Upon Completions of procedure up to 15 minutes continue every 5 minute vital signs and the P.A.R. score; then discharge to a Phase I or Fast Track to Phase II per the following guidelines: * Discharge Patient to appropriate Phase II area if PAR is 8 or greater or return to pre- procedure baseline. The post - procedure orders will be as directed. * If PAR score is less than 8 or not return to pre-procedure baseline then patient will follow Phase I monitoring till PAR is reached for Phase II. The Phase I may be done in procedure room or may call to secure a Phase I area. * If naloxone or flumazenil are used for reversal, hold in Phase I for continued monitoring from when last reversal dose was given for a minimum of 60 minutes or longer pending the nurse and/or physician discretion of patient condition before discharge to Phase II. Please call the Sedation Physician to re-evaluate and complete post-note for discharge to Phase II area. Do NOT discharge from procedure sedation or Phase 1 until post- sedation evaluation note is complete by procedure /sedation MD Sedation Discharge Instructions to be given to the patient at discharge to home.
[2023-01-09 10:54] LABS: Estimated Average Glucose 111 mg/dl; Hemoglobin A1C 5.5 % (4.5-5.6)
--- NOTE | 2023-01-09 10:55 | Cardiac Catheterization ---
Cardiac Cath Procedure Full Procedure Date January 09, 2023 Pre-Procedure Diagnosis Pre-Procedure Diagnosis: Non STEMI AUC Score AUC Score: 8 Post-Procedure Diagnosis Post-Procedure Diagnosis: Severe CAD and Normal Intracardiac Pressures Procedure(s) Performed Procedure(s) Performed: Coronary Angiography and Left Heart Cath Visual Basic .Net Developer Ji Ge DO Volleyball Commentator(s) Deibler RTR Estimated Blood Loss Estimated Blood Loss: 6cc Medication(s) Medication(s): Fentanyl, Lidocaine 1%, Nicardipine, Nitroglycerin and Versed Summary of Findings 99% mid circumflex occlusion. 40-50% mid LAD Hemodynamics Rest Ao:: 111/82/97 Final Ao: 101/65/82 LV: 110/5/9 Recommendations Recommendations: PCI without planned CABG Specimens Specimens: None Radiation Exposure (mGy) 1321 Contrast (mls) 40 Fluids (cc crystalloids) Fluids (cc crystalloids): 105 Nss Anesthesia Moderate sedation. Start 1000. End 1031. Sedation monitor: Inderjit BAR Procedural Complication(s) None I attest to the content of the Intraoperative Record and any orders documented therein. Any exceptions are noted below. [facility] Data: Licensed Mental Health Counselor Cardiac Status Clinical evaluation leading to the procedure 62-year-old male presents with NSTEMI. CAD Presenation: Non STEMI Anginal Classification: CCS III Heart Failure: No Cardiogenic Shock within 24 Hours: No Cardiac Arrest within 24 Hours: No Imaging Studies Past 6 Months: Yes Stress Studies Past 6 Months: No STEMI OR Non-STEMI Symptom Onset Date: 12/29/22 Symptom Onset Time: 12:00 Thrombolytics: No Coronary Anatomy Dominant: Right Left Main (% Stenosis): Normal LAD (% Stenosis): Proximal (20%), Mid (40-50%) and Distal (10% diffuse) D1 (% Stenosis): Mid (20%) D2 (% Stenosis): Ostial (30%, small vessel) D3 (% Stenosis): Normal Circumflex (% Stenosis): Mid (99%) RCA (% Stenosis): Ostial (Anterior origin. subselective injection.), Proximal (10%), Mid (30%) and Distal (30%) R PDA (% Stenosis): Normal R PL1 (% Stenosis): Normal R PL2 (% Stenosis): Normal Diagnostic Physicians Name: Ji Ge DO Closure Device Percutaneous Entry Location: Radial Closure Device: Radial Band Recommendations: PCI without planned CABG Intraprocedure Events Significant Disection: No Perforation: No
[2023-01-09] MEDS ORDERED: HEPARIN (PORCINE) 1000 UNIT/ML 10 ML (CATH LAB USE ONLY) ONE ×2 (11:42→13:52)
[2023-01-09] MEDS ORDERED: MIDAZOLAM HCL 1 MG/ML 2ML VIAL ONE ×2 (11:42→14:13)
[2023-01-09] MEDS ORDERED: niCARdipine HCL INJ 2.5 MG/ML 10 ML AMP ONE ×2 (11:43→13:52)
[2023-01-09] MEDS ORDERED: fentaNYL citrate PF 100 MCG/2 ML VIAL ONE ×2 (11:43→14:18)
[2023-01-09] MEDS ORDERED: NITROGLYCERIN/D5W 100MCG/ML 20ML SYR ONE ×2 (11:43→13:52)
[2023-01-09] MEDS ORDERED: TICAGRELOR 90 MG TAB ONE ×2 (11:48→13:56)
[2023-01-09] MEDS: ATORVASTATIN 40 MG TAB PO SCH (11:59)
[2023-01-09] MEDS: ASPIRIN 81 MG CHEW PO SCH (12:00)
--- NOTE | 2023-01-09 12:02 | Post Anesthesia Assessment ---
Date of Service January 09, 2023 Post Sedation Assessment Vital Signs Temp Pulse Pulse Resp BP BP BP 01/09/23 11:52 36.5 C 68 19 149/88 H 01/09/23 11:33 66 18 123/90 01/09/23 11:15 64 18 122/84 01/09/23 08:00 70 01/09/23 07:53 36.8 C 77 18 131/77 01/08/23 22:04 69 01/08/23 23:36 36.7 C 73 19 118/78 01/08/23 20:30 36.5 C 75 15 147/82 H 01/08/23 14:46 80 01/08/23 18:35 36.8 C 78 18 162/90 H 01/08/23 17:30 77 19 01/08/23 17:30 156/103 H 01/08/23 17:00 81 16 01/08/23 17:00 148/102 H 01/08/23 16:30 91 H 21 01/08/23 16:30 170/111 H 01/08/23 16:00 77 17 01/08/23 16:00 157/108 H 01/08/23 15:50 176/112 H 01/08/23 15:49 92 H 16 01/08/23 15:30 95 H 18 01/08/23 15:30 172/113 H 01/08/23 15:44 94 H 167/104 H 01/08/23 15:07 167/104 H 01/08/23 15:07 94 H 20 01/08/23 15:00 89 17 01/08/23 14:30 94 H 19 01/08/23 14:26 93 H 16 01/08/23 14:28 97 H 01/08/23 14:10 36.6 C 106 H 18 163/107 H Pulse Ox O2 Del Method 01/09/23 11:52 95 Room Air 01/09/23 11:33 94 Room Air 01/09/23 11:15 93 Room Air 01/09/23 08:00 01/09/23 07:53 94 Room Air 01/08/23 22:04 01/08/23 23:36 94 Room Air 01/08/23 20:30 95 Room Air 01/08/23 14:46 01/08/23 18:35 94 Room Air 01/08/23 17:30 94 01/08/23 17:30 01/08/23 17:00 94 01/08/23 17:00 01/08/23 16:30 96 01/08/23 16:30 01/08/23 16:00 95 01/08/23 16:00 01/08/23 15:50 01/08/23 15:49 96 01/08/23 15:30 96 01/08/23 15:30 01/08/23 15:44 01/08/23 15:07 01/08/23 15:07 95 01/08/23 15:00 95 01/08/23 14:30 95 01/08/23 14:26 96 01/08/23 14:28 01/08/23 14:10 95 Room Air Recovery Score Activity: Moves 4 extremities Respiration: Deep Breath/Cough Circulation: +/-20% PreAnes Value Consciousness: Fully Awake Oxygen Saturation: > 92% On Room Air Post Anesthesia Score: 10 Discharge Sedation Level of Care: Fast Track Phase II Post Sedation Plan On clinical assessment, the patient appears to have tolerated the sedation without complications. Patient is recovering as anticipated. Patient will continue to be monitored by nursing and may be discharged when sedation discharge criteria are met per below protocol. Upon Completions of procedure up to 15 minutes continue every 5 minute vital signs and the P.A.R. score; then discharge to a Phase I or Fast Track to Phase II per the following guidelines: * Discharge Patient to appropriate Phase II area if PAR is 8 or greater or return to pre- procedure baseline. The post - procedure orders will be as directed. * If PAR score is less than 8 or not return to pre-procedure baseline then patient will follow Phase I monitoring till PAR is reached for Phase II. The Phase I may be done in procedure room or may call to secure a Phase I area. * If naloxone or flumazenil are used for reversal, hold in Phase I for continued monitoring from when last reversal dose was given for a minimum of 60 minutes or longer pending the nurse and/or physician discretion of patient condition before discharge to Phase II. Please call the Sedation Physician to re-evaluate and complete post-note for discharge to Phase II area. Do NOT discharge from procedure sedation or Phase 1 until post- sedation evaluation note is complete by procedure /sedation MD Sedation Discharge Instructions to be given to the patient at discharge to home. [facility] Procedure Codes (Charges) Indication for Procedure Indication for procedure: severe CAD Sedation/Anesthesia Procedure 1: Sedation/Anesthesia: 17842 Mod Sedation by the same physician;Init15 Min Child Age 5 & Up (Initial 15 minutes (start time 1038)) Total Sedation Time (minutes): 30 Procedure 2: Sedation/Anesthesia: 13244 Mod Sedation by the same physician; Ea [id number] Minutes (Additional 15 minutes (end time 1108)) Total Sedation Time (minutes): 30
--- NOTE | 2023-01-09 12:18 | Cardiac Catheterization ---
[facility] Data: Accounting Representative Cardiac Status Clinical evaluation leading to the procedure CAD Presenation: Non STEMI Anginal Classification: CCS IV Heart Failure: No Cardiogenic Shock within 24 Hours: No Cardiac Arrest within 24 Hours: No Coronary Anatomy Left Main (% Stenosis): Normal (See diagnostic coronary angiography report by Dr. Ge) Diagnostic Physicians Name: Scout Muñoz MD, PhD Closure Device Percutaneous Entry Location: Radial Closure Device: Radial Band Recommendations: PCI without planned CABG PCI Indication: PCI for high risk Non-JOSE Lesion Segment Name: Mid circumflex into proximal OM Culprit Artery: Yes Stenosis Prior to Rx (%): 95 to 99% Chronic Total Occlusion: No Pre-Procedure JOSH Flow: 1 Previously Treated Lesion: No Lesion Complexity: Non-High/Non-C Lesion Length (mm): 14 Thrombus Present: Yes Bifurcation Lesion: Yes Guidewire Across Lesion: Yes Intraprocedure Events Significant Disection: No Perforation: No Cardiac Cath Procedure Full Procedure Date January 09, 2023 Pre-Procedure Diagnosis Pre-Procedure Diagnosis: Non STEMI AUC Score AUC Score: 7 Post-Procedure Diagnosis Post-Procedure Diagnosis: Severe CAD and Successful PCI Procedure(s) Performed Procedure(s) Performed: Drug Eluting Stent Repair Cameraman Scout Muñoz MD, PhD Stores Naval(s) Deibler RTR Estimated Blood Loss Estimated Blood Loss: 5 ml Medication(s) Medication(s): Fentanyl, Heparin, Lidocaine 1%, Nicardipine, Nitroglycerin and Versed Summary of Findings Brief description: Patient was already shaved and prepped in a sterile fashion. He had a 6 Portuguese radial glide sheath in his right radial artery. He had just completed diagnostic coronary angiography performed by Dr. Ge. He was very awake so he was further sedated with IV fentanyl and Versed. We proceeded with PCI of the left circumflex. ACT was checked and additional heparin was provided as needed to maintain therapeutic anticoagulation. A 6 Portuguese EBU 3.0 guide catheter was used to engage the left main coronary artery. A BMW reversal guidewire was advanced through the guide catheter and under flu oroscopic guidance positioned distally in the circumflex/OM branch. The lesion was predilated using a 2.5 x 12 mm PTCA balloon with multiple inflations up to 14 jose alejandro. PCI was performed using a 2.5 x 18 mm Amadeo drug-eluting stent ultimately deployed at 16 atmospheres. Stent balloon was removed and coronary angiography performed. Guide wire was removed and angiography performed. Guide catheter was removed. Radial artery sheath was removed and hemostasis was obtained using a TR band. Patient was provided 180 mg of p.o. Brilinta. He had already received 324 mg of aspirin. He was hemodynamically stable and returned to the recovery area. This ended the case. Findings: 1. 0% residual stenosis post PCI of the mid circumflex/OM. 2. JOSH-3 flow post PCI 3. No evidence of dissection or perforation post PCI Summary: 1. Successful PCI of the mid circumflex to OM using a single drug-eluting stent 2. No evidence of complication post PCI 3. Dual antiplatelet therapy with aspirin 81 mg daily and Brilinta 90 mg p.o. twice daily is recommended for 1 to 2 years. In addition, guideline directed medical therapy for secondary prevention of coronary disease is recommended and will be determined by the primary card table attendant. Hemodynamics Rest Ao:: 129/73 mmHg, mean 93 mmHg Final Ao: 110/53 mmHg, mean 69 mmHg LV: Not performed Recommendations Recommendations: PCI without planned CABG Specimens Specimens: None Radiation Exposure (mGy) 2352 mGy, fluoroscopy time 18.8 minutes Contrast (mls) 115 mL Fluids (cc crystalloids) Fluids (cc crystalloids): 105 Nss Anesthesia Moderate sedation. Start 1000. End 1031. Sedation monitor: Inderjit BAR Procedural Complication(s) None Disposition Recovery Room\PACU I attest to the content of the Intraoperative Record and any orders documented therein. Any exceptions are noted below. [facility] Card Cath Procedure Codes Moderate Sedation Procedure 1: Sedation/Anesthesia: 47397 Mod Sedation by a different physician ;Init15 Min Child Age 5&Up (Initial 15 min, total 30-minute (start 10:38 AM)) Procedure 2: Sedation/Anesthesia: 90922 Mod Sedation by a different physician;Ea Additional 15 Minutes (Additional 15 min, total 30-minute (end time 11:08 AM)) Stenting Procedure 1: Cardiovascular Stent Procedures: 06540 Perc transcatheter placement of intracoronary stent(s), with ang (Left circumflex) PG Care Time/CCT Total # of Minutes Spent Total Time Spent with Patient: Total time spent is greater than 50% in coordination of care (as documented) at patient's floor/unit and/or counseling patient:
--- NOTE | 2023-01-09 17:18 | Hospitalist Progress Note ---
Date of Service January 09, 2023 Assessment & Plan (1) Chest pain, exertional: (2) Elevated troponin: (3) Elevated blood pressure reading: (4) HLD (hyperlipidemia): (5) Depression: Plan Patient is a 62 yr male with H/O hyperlipidemia and recurrent major depressive disorder who presents to ED secondary to exertional chest pain x2 to 3 days. NSTEMI Cardiac Cath:99% mid circumflex occlusion. 40-50% mid LAD S/P Successful PCI of the mid circumflex to OM using a single drug-eluting stent --CXR:No acute process. --Lipid Panel: Total cholesterol 243, LDL 182 HbA1c 5.5 Continue aspirin, Brilinta, Lipitor Appreciate cardiology input Continue metoprolol Needs follow-up with cardiology upon discharge HLD On Lipitor Depression continue Prozac DVT Px: Was on IV heparin SCDs Code Status FULL CODE Admission and Anticipated Discharge Date Admission Date: January 08, 2023 Subjective Patient is seen and examined at bedside Had cardiac catheterization this morning States feeling well post cath Denies any chest pain, dyspnea, dizziness, nausea, abdominal pain No other complaints Review of Systems Review of Systems: All systems reviewed & are unremarkable except as noted in Subjective Physical Exam Physical Exam: Physical Exam: Vitals signs as noted above General Appearance:Moderately built and nourished, no apparent distress Head: normocephalic, Atraumatic Eyes: normal inspection, EOMI Neck: supple, Trachea midline Respiratory/Chest: Normal breath sounds, CTA, No accessory muscle use Cardiovascular: S1, S2, No murmur Abdomen/GI:Soft, Non tender, Bowel sounds present Extremities/Musculoskeletal:normal inspection, no edema Neurologic/Psych:AAOX3, grossly no focal neurological deficits Skin: normal color, warm Results & Data Results & Data Vital Signs (Past 12 Hours) Vital Signs Temp Pulse Pulse Resp BP BP Pulse Ox 01/09/23 14:00 75 01/09/23 14:00 77 20 132/81 94 01/09/23 13:30 78 20 146/99 H 94 01/09/23 16:00 36.7 C 80 20 142/61 H 93 01/09/23 12:59 72 144/89 H 95 01/09/23 12:29 70 137/89 95 01/09/23 11:59 68 20 129/84 94 01/09/23 11:52 36.5 C 68 19 149/88 H 95 01/09/23 11:33 66 18 123/90 94 01/09/23 11:15 64 18 122/84 93 01/09/23 08:00 70 01/09/23 07:53 36.8 C 77 18 131/77 94 O2 Del Method 01/09/23 14:00 01/09/23 14:00 Room Air 01/09/23 13:30 Room Air 01/09/23 16:00 Room Air 01/09/23 12:59 Room Air 01/09/23 12:29 Room Air 01/09/23 11:59 Room Air 01/09/23 11:52 Room Air 01/09/23 11:33 Room Air 01/09/23 11:15 Room Air 01/09/23 08:00 01/09/23 07:53 Room Air Laboratory Results Short CBC 01/09/23 Range/Units 08:21 WBC 11.48 H (4.8-10.8) K/ul Hgb 15.8 (14.0-18.0) g/dl Hct 43.8 (42.0-52.0) % Plt Count 220 (130-400) K/uL BMP 01/09/23 08:38 Sodium 137 Potassium 3.8 Chloride 104 Carbon Dioxide 28 BUN 15 Creatinine 0.82 Glucose 98 Calcium 9.0 Liver Function 01/09/23 Range/Units 08:38 Total Bilirubin 0.9 (0.2-1.0) mg/dl AST 16 (13-39) U/L ALT 17 (7-52) U/L Alkaline Phosphatase 51 (34-104) U/L Albumin 4.2 (3.4-5.0) gm/dl
--- NOTE | 2023-01-09 17:58 | Electrocardiogram Report ---
Test Reason : Blood Pressure : / mmHG Vent. Rate : 103 BPM Atrial Rate : 103 BPM P-R Int : 154 ms QRS Dur : 094 ms QT Int : 344 ms P-R-T Axes : 039 -10 039 degrees QTc Int : 450 ms Sinus tachycardia Minimal voltage criteria for LVH, may be normal variant Borderline ECG When compared with ECG of 22-MAY-2011 10:37, No significant change was found Confirmed by Jakub Cantrell ([id number]) on 01/09/2023 5:58:13 PM Referred By: Confirmed By:Margarito Cantrell
--- NOTE | 2023-01-09 18:09 | Electrocardiogram Report ---
Test Reason : Blood Pressure : / mmHG Vent. Rate : 066 BPM Atrial Rate : 066 BPM P-R Int : 158 ms QRS Dur : 086 ms QT Int : 402 ms P-R-T Axes : 045 -17 -09 degrees QTc Int : 421 ms Normal sinus rhythm Minimal voltage criteria for LVH, may be normal variant Borderline ECG When compared with ECG of 08-JAN-2023 14:18, (unconfirmed) Vent. rate has decreased BY 37 BPM T wave inversion now evident in Inferior leads Confirmed by Jakub Cantrell ([id number]) on 01/09/2023 6:08:33 PM Referred By: Wilman Murrell Confirmed By:Margarito Cantrell
[2023-01-09] MEDS: TICAGRELOR 90 MG TAB PO SCH (20:03)
[2023-01-10 07:26] LABS: Basophils # (auto) 0.05 K/uL (0-0.2); Basophils % (auto) 0.5 %; Eosinophils # (auto) 0.12 K/uL (0-0.50); Eosinophils % (auto) 1.2 %; Hematocrit (blood only) 46.1 % (42.0-52.0); Hemoglobin 16.7 g/dl (14.0-18.0); Immature Granulocytes # (auto) 0.03 K/uL (0.01-0.20); Immature Granulocytes % (auto) 0.3 %; Lymphocytes # (auto) 2.39 K/uL (1.2-3.4); Mean Corpuscular Hemoglobin 30.6 pg (25.0-34.0); Mean Corpuscular Hgb Conc 36.2 g/dL (32.0-36.0); Mean Corpuscular Volume 84.4 fL (80.0-100.0); Mean Platelet Volume 9.6 fL (9.4-12.4); Monocytes # (auto) 0.79 K/uL (0.11-0.59); Monocytes % (auto) 7.9 %; Neutrophils # (auto) 6.57 K/uL (1.40-6.50); Neutrophils % (auto) 66.1 %; Platelet Count 218 K/uL (130-400); RDW Coefficient of Variation 13.8 % (11.5-14.5); RDW Standard Deviation 42.3 fL (36.4-46.3); Red Blood Count 5.46 M/uL (4.70-6.10); White Blood Count 9.95 K/ul (4.8-10.8)
[2023-01-10 07:42] LABS: Calcium 9.1 mg/dl (8.6-10.3); Creatinine Clr Calc Pharmacy 96.4 ml/min; Est GFR (African American) 107.2 ml/min; Est GFR (Non-African American) 92.5 ml/min; Potassium 3.9 mmol/L (3.5-5.1)
[2023-01-10] MEDS: ATORVASTATIN 40 MG TAB PO SCH (08:03)
[2023-01-10] MEDS: METOPROLOL TARTRATE 25 MG TAB PO SCH (08:03)
[2023-01-10] MEDS: TICAGRELOR 90 MG TAB PO SCH (08:03)
[2023-01-10] MEDS: FLUoxetine HCL 10 MG CAP PO SCH (08:03)
[2023-01-10] MEDS: ASPIRIN 81 MG CHEW PO SCH (09:01)
--- NOTE | 2023-01-10 11:37 | CT Scan Report ---
CT chest diagnostic wo con CT DOSE: 534.92 mGy.cm CLINICAL HISTORY: 62 years-old Male with Ascending aortic aneurysm. Follow-up study in a patient wit h reported thoracic aortic aneurysm TECHNIQUE: Multiaxial CT images of the chest were performed without contrast. A dose lowering techni que was utilized adhering to the principles of ALARA. COMPARISON: Chest radiograph 01/08/2022 FINDINGS: No thyroid nodule or lymphadenopathy identified. Mild cardiomegaly with extensive coronary artery calcifications. No pericardial effusion. Fusiform dilation of the ascending thoracic aorta at the level of the main pulmonary artery, 4.5 x 4.4 cm. The pulmonary artery is normal in caliber. No pneumothorax, pleural effusion, airspace consolidation or overt pulmonary edema. Minimal subsegmen brett bibasilar atelectasis. No suspicious pulmonary nodules or masses. Scattered low suspicion solid p ulmonary nodules measure up to 3 mm with fissural nodules measuring up to 4 mm, also likely benign. C entral airways are patent. No acute process of the imaged upper abdomen. Small hiatal hernia with trace free fluid. Mildly contr acted gallbladder. Unremarkable liver. Gynecomastia. No acute fracture identified. IMPRESSION: 1. No acute intrathoracic abnormality. 2. Mild cardiomegaly with extensive coronary artery calcifications. 3. Fusiform dilation of the ascending thoracic aorta, 4.5 x 4.4 cm. 4. Scattered low suspicion bilateral solid pulmonary nodules measure up to 4 mm which are likely tony gn. No follow-up recommended in a low-risk patient according to the guidelines below. Please refer to below summary of Fleischner criteria recommendations for follow-up of incidental CT n odules (Jay Leon, Guidelines for management of small pulmonary nodules detected on CT scans: A sta tement from the Fleischner Society, Radiology 237: [id number].) SOLID NODULES Multiple nodules size: <6 mm * Low risk patients: no routine follow-up * high risk patients: optional CT at 12 months Note: newly detected indeterminate nodule in persons 35 years of age or older. * Low risk patients: minimal or absent history of smoking and/or other known risk factors * high risk patients: history of smoking or of other known risk factors (e.g. first degree relative with lung cancer, or exposure to asbestos, radon, uranium) * if a nodule up to 8 mm is partly solid or is ground glass further follow-up is required after 24 m ont to exclude possible slow growing adenocarcinoma (LEONARD) ACT 112: Negative or not required by law. Electronically signed by: Roddy Atkins M.D. 01/10/2023 11:35 AM
--- NOTE | 2023-01-10 12:13 | Cardiology Progress Note ---
Date of Service January 10, 2023 Assessment & Plan (1) Non-ST elevated myocardial infarction: (2) Dyslipidemia, goal LDL below 70: (3) Elevated blood pressure reading: (4) Presence of drug-eluting stent in left circumflex coronary artery: (5) Ascending aorta enlargement: Plan 62-year-old male presented with symptoms of crescendo angina and non-ST segment elevation myocardial infarction. Cardiac catheterization demonstrates essentially single-vessel disease with high-grade circumflex lesion and moderate atherosclerosis other vessels, mildly dilated aortic root Patient received drug-eluting stent to left circumflex greater than 90% lesion without complication Ascending aorta mild to moderately enlarged by CAT scan and Patient on appropriate medical therapies and to be discharged home on current medical regimen May benefit from CONSTANZA inhibitor post disc Cardiac rehab Follow-up cardiology 2 to 4 weeks time Admission and Anticipated Discharge Date Admission Date: January 08, 2023 Subjective Patient seen and examined, chart, medications, telemetry reviewed. Feels well this morning right radial access site healing well. Ambulatory in room without difficulty. Review of Systems Review of Systems: All systems reviewed & are unremarkable except as noted in Subjective Physical Exam Constitutional: well nourished; no acute distress ENMT: external ear and nose normal, oropharynx normal Mallampati Class: II Neck: trachea midline, no thyromegaly Respiratory: normal respiratory effort; no respiratory distress, no labored breathing and no retractions Auscultation: lungs clear to auscultation bilaterally; no crackles, no rales, no rhonchi and no wheezes Cardiovascular: Rate/Rhythm: regular rate and regular rhythm Heart Sounds: normal S1 and normal S2; no murmur Vessels: femoral pulses present and radial pulses present (Access site healing well without hematoma); no JVD and no carotid bruit Extremities: no edema Gastrointestinal (Abdomen): Inspection/Auscultation: abdomen normal to inspection and normal bowel sounds; abdomen not distended Percussion/Palpation: abdomen soft; abdomen nontender, no guarding and abdomen not rigid Neurologic: CN's II-XI intact bilaterally; no focal motor deficits Motor/Sensory: no tremor Psychiatric: A+Ox3, euthymic affect Results & Data Vital Signs (Past 12 Hours) Vital Signs Temp Pulse Pulse Resp BP Pulse Ox O2 Del Method 01/10/23 11:40 36.6 C 70 18 141/84 H 95 Room Air 01/10/23 08:00 64 04/22/23 07:19 36.7 C 82 18 143/91 H 95 Room Air 01/10/23 04:00 36.7 C 81 18 127/87 95 Room Air Laboratory Results Laboratory Results - last 24 hr 01/10/23 01/10/23 07:09 07:09 WBC 9.95 RBC 5.46 Hgb 16.7 Hct 46.1 MCV 84.4 MCH 30.6 MCHC 36.2 H RDW Std Deviation 42.3 RDW Coeff of Georgette 13.8 Plt Count 218 MPV 9.6 Immature Gran % (Auto) 0.3 Neut % (Auto) 66.1 Lymph % (Auto) 24.0 [place] % (Auto) 7.9 Eos % (Auto) 1.2 Baso % (Auto) 0.5 Neut # (Auto) 6.57 H Lymph # (Auto) 2.39 [place] # (Auto) 0.79 H Eos # (Auto) 0.12 Baso # (Auto) 0.05 Immature Gran # (Auto) 0.03 Sodium 138 Potassium 3.9 Chloride 106 Carbon Dioxide 23 Anion Gap 9 BUN 16 Creatinine 0.84 Est Cr Clr Drug Dosing 96.4 Est GFR ( Amer) 107.2 Est GFR (Non-Af Amer) 92.5 BUN/Creatinine Ratio 19.0 Glucose 86 Calcium 9.1 Magnesium 2.0
--- NOTE | 2023-01-10 13:11 | Electrocardiogram Report ---
Test Reason : Blood Pressure : / mmHG Vent. Rate : 078 BPM Atrial Rate : 078 BPM P-R Int : 148 ms QRS Dur : 094 ms QT Int : 372 ms P-R-T Axes : -17 -27 -13 degrees QTc Int : 424 ms Normal sinus rhythm Minimal voltage criteria for LVH, may be normal variant Borderline ECG When compared with ECG of 09-JAN-2023 11:29, No significant change was found Confirmed by Micah Pulliam ([id number]) on 01/10/2023 1:11:18 PM Referred By: Wilman Murrell Confirmed By:Micah Pulliam
--- NOTE | 2023-01-10 13:21 | Hospitalist Progress Note ---
Date of Service January 10, 2023 Assessment & Plan (1) Chest pain, exertional: (2) Elevated troponin: (3) Elevated blood pressure reading: (4) HLD (hyperlipidemia): (5) Depression: Plan Patient is a 62 yr male with H/O hyperlipidemia and recurrent major depressive disorder who presents to ED secondary to exertional chest pain x2 to 3 days. NSTEMI Cardiac Cath:99% mid circumflex occlusion. 40-50% mid LAD S/P Successful PCI of the mid circumflex to OM using a single drug-eluting stent --CXR:No acute process. --Lipid Panel: Total cholesterol 243, LDL 182 HbA1c 5.5 Continue aspirin, Brilinta, Lipitor Appreciate cardiology input Continue metoprolol Plan to discharge home today Advised to follow-up with cardiology in 2 to 4 weeks Ascending thoracic aorta dilation Pulmonary nodule Incidental finding on CT for --CT Chest:No acute intrathoracic abnormality. Mild cardiomegaly with extensive coronary artery calcifications. Fusiform dilation of the ascending thoracic aorta, 4.5 x 4.4 cm. Scattered low suspicion bilateral solid pulmonary nodules measure up to 4 mm which are likely benign. No follow-up recommended in a low- risk patient according to the guidelines below. -- Advised to follow-up with PCP as outpatient HLD On Lipitor Depression continue Prozac DVT Px: Was on IV heparin SCDs Code Status FULL CODE Admission and Anticipated Discharge Date Admission Date: January 08, 2023 Subjective Patient is seen and examined at bedside Doing well today Offers no complaints Denies any chest pain, dyspnea, dizziness, nausea, abdominal pain Plan to discharge home Review of Systems Review of Systems: All systems reviewed & are unremarkable except as noted in Subjective Physical Exam Physical Exam: Physical Exam: Vitals signs as noted above General Appearance:Moderately built and nourished, no apparent distress Head: normocephalic, Atraumatic Eyes: normal inspection, EOMI Neck: supple, Trachea midline Respiratory/Chest: Normal breath sounds, CTA, No accessory muscle use Cardiovascular: S1, S2, No murmur Abdomen/GI:Soft, Non tender, Bowel sounds present Extremities/Musculoskeletal:normal inspection, no edema Neurologic/Psych:AAOX3, grossly no focal neurological deficits Skin: normal color, warm Results & Data Results & Data Vital Signs (Past 12 Hours) Vital Signs Temp Pulse Pulse Resp BP Pulse Ox O2 Del Method 01/10/23 11:40 36.6 C 70 18 141/84 H 95 Room Air 01/10/23 08:00 64 01/10/23 07:19 36.7 C 82 18 143/91 H 95 Room Air 01/10/23 04:00 36.7 C 81 18 127/87 95 Room Air Laboratory Results Short CBC 01/10/23 Range/Units 07:09 WBC 9.95 (4.8-10.8) K/ul Hgb 16.7 (14.0-18.0) g/dl Hct 46.1 (42.0-52.0) % Plt Count 218 (130-400) K/uL BMP 01/10/23 07:09 Sodium 138 Potassium 3.9 Chloride 106 Carbon Dioxide 23 BUN 16 Creatinine 0.84 Glucose 86 Calcium 9.1
--- NOTE | 2023-01-10 13:39 | Discharge Summary ---
Date of Service January 10, 2023 Admission HPI Per Admitting Provider This is a 62-year-old male who has significant past medical history of hyperlipidemia and recurrent major depressive disorder who presents to ED secondary to exertional chest pain x2 to 3 days. Patient's [facility] is [facility] He states that 2 to 3 weeks ago he developed URI symptoms. He was seen and evaluated by PCP and completed a course of azithromycin approximately 5 days ago. He states over the last 2 to 3 days he has been experiencing exertional chest pain. Typically onset will begin after walking approximately 50 feet and chest pain will resolve whenever he sits for several seconds. Chest pain never occurs at rest. Chest pain is substernal and left side of his chest but nonradiating. Currently he is chest pain-free and describes it as a, "pressure." He does get occasional shortness of breath but not consistently with exertion. He denies any fever, chills, sweats, lightheadedness, dizziness, nausea, diaphoresis, URI symptoms, abdominal pain, changes bowel or urinary habits. He is otherwise fairly healthy at baseline and only takes an antidepressant. He denies any family history of heart disease. He is a non- smoker and a nondrinker. His grandfather did pass away in his 30s of heart attack. His father also has a pacemaker and atrial fibrillation. In ED patient remained hemodynamically stable although he was significantly hypertensive and tachycardic. He did have mild elevation in troponin at 35.8. Chest x-ray was negative for acute process. EKG revealed sinus tachycardia but no ST or T wave change. In ED he received full-strength aspirin, 2.5 mg of IV Lopressor, nitroglycerin paste and started on heparin drip. Admission Exam Per Admitting Provider Constitutional: WD/WN, vitals as above, NAD, sitting up in bed, pleasant, conversing easily Head: Normocephalic, Atraumatic Eyes: PERRL, conjunctivae normal, anicteric sclerae ENMT: external ear and nose normal, oropharynx normal Neck: trachea midline, no thyromegaly normal visual inspection Respiratory: normal respiratory effort, lungs clear to auscultation, no wheeze, rales, rhonchi. Normal insp/exp effort, no accessory muscle use Cardiovascular: RRR, no murmur, no edema Vessels: no JVD or carotid bruit Chest: normal inspection of chest, chest pain nonreproducible Abdomen: normal bowel sounds, soft, nontender, no hepatosplenomegaly Musculoskeletal: no cyanosis or clubbing, extremities motor strength 5/5 Skin: no rashes, warm and dry normal turgor Neurologic: PERRL, EOMI, accommodation nl, no face palsy, no dysarthria CN's II-XI intact bilaterally and moves all extremities Psychiatric: A+Ox3, euthymic affect Lymphatic: no cervical or axillary lymphadenopathy : deferred Principal Diagnosis Non-ST elevated myocardial infarction Ascending aorta enlargement Pulmonary nodules Hyperlipidemia Discharge Data Allergies Allergy/AdvReac Type Severity Reaction Status Date / Time No Known Allergies Allergy Unverified 01/08/23 15:07 Consultations 01/08/23 16:00 ED Decision to Admit Stat 01/08/23 16:04 Consult Cardiology Routine 01/09/23 09:04 Consult Cardiac Catheterization Routine Procedures Performed Operation Date: 01/09/23 09:30 Actual Procedures s Cineradiography w/Routine Exam - Ji Ge DO p Cath, Left with Cors and Vent - Ji Ge DO s Drug Eluting Stent SGl Vessel - Scout Muñoz MD, PhD Ordered Studies 01/09/23 09:03 CL Cath Imgs for PACS use only Routine 01/10/23 08:00 CT chest without contrast [CT chest diagnostic wo con] Routine Laboratory Results WBC 9.95 K/ul (4.8-10.8) 01/10/23 07:09 RBC 5.46 M/uL (4.70-6.10) 01/10/23 07:09 Hgb 16.7 g/dl (14.0-18.0) 01/10/23 07:09 Hct 46.1 % (42.0-52.0) 01/10/23 07:09 MCV 84.4 fL (80.0-100.0) 01/10/23 07:09 MCH 30.6 pg (25.0-34.0) 01/10/23 07:09 MCHC 36.2 g/dL (32.0-36.0) H 01/10/23 07:09 RDW Std Deviation 42.3 fL (36.4-46.3) 01/10/23 07:09 RDW Coeff of Georgette 13.8 % (11.5-14.5) 01/10/23 07:09 Plt Count 218 K/uL (130-400) 01/10/23 07:09 MPV 9.6 fL (9.4-12.4) 01/10/23 07:09 Immature Gran % (Auto) 0.3 % 01/10/23 07:09 Neut % (Auto) 66.1 % 01/10/23 07:09 Lymph % (Auto) 24.0 % 01/10/23 07:09 Alcorn % (Auto) 7.9 % 01/10/23 07:09 Eos % (Auto) 1.2 % 01/10/23 07:09 Baso % (Auto) 0.5 % 01/10/23 07:09 Neut # (Auto) 6.57 K/uL (1.40-6.50) H 01/10/23 07:09 Lymph # (Auto) 2.39 K/uL (1.2-3.4) 01/10/23 07:09 Alcorn # (Auto) 0.79 K/uL (0.11-0.59) H 01/10/23 07:09 Eos # (Auto) 0.12 K/uL (0-0.50) 01/10/23 07:09 Baso # (Auto) 0.05 K/uL (0-0.2) 01/10/23 07:09 Immature Gran # (Auto) 0.03 K/uL (0.01-0.20) 01/10/23 07:09 ESR 9 mm/hr (0-20) 01/08/23 17:30 APTT 44.9 Seconds (21.0-31.0) H* 01/09/23 08:21 PTT Ratio 1.6 01/09/23 08:21 Activ Coag Time Kaolin 221 SECONDS (94-140) H 01/09/23 10:49 D-Dimer 200 ug/L FEU (0-500) 01/08/23 14:22 Sodium 138 mmol/L (136-145) 01/10/23 07:09 Potassium 3.9 mmol/L (3.5-5.1) 01/10/23 07:09 Chloride 106 mmol/L (98-107) 01/10/23 07:09 Carbon Dioxide 23 mmol/L (21-32) 01/10/23 07:09 Anion Gap 9 (3-11) 01/10/23 07:09 BUN 16 mg/dl (6-23) 01/10/23 07:09 Creatinine 0.84 mg/dl (0.6-1.4) 01/10/23 07:09 Est Cr Clr Drug Dosing 96.4 ml/min 01/10/23 07:09 Est GFR ( Amer) 107.2 ml/min 01/10/23 07:09 Est GFR (Non-Af Amer) 92.5 ml/min 01/10/23 07:09 BUN/Creatinine Ratio 19.0 (10-20) 01/10/23 07:09 Glucose 86 mg/dl (70-99(Fasting)) 01/10/23 07:09 POC Glucose 123 mg/dl (70-99) H 01/08/23 21:32 Estimat Average Glucose 111 mg/dl 01/09/23 08:21 Hemoglobin A1c 5.5 % (4.5-5.6) 01/09/23 08:21 Calcium 9.1 mg/dl (8.6-10.3) 01/10/23 07:09 Magnesium 2.0 mg/dl (1.7-2.4) 01/10/23 07:09 Total Bilirubin 0.9 mg/dl (0.2-1.0) 01/09/23 08:38 AST 16 U/L (13-39) 01/09/23 08:38 ALT 17 U/L (7-52) 01/09/23 08:38 Alkaline Phosphatase 51 U/L (34-104) 01/09/23 08:38 Troponin I High Sens 141.0 pg/ml (0-20) H* D 01/09/23 08:21 C-Reactive Protein < 0.50 mg/dl (0-0.5) 01/08/23 17:30 Total Protein 6.8 gm/dl (6.0-8.3) 01/09/23 08:38 Albumin 4.2 gm/dl (3.4-5.0) 01/09/23 08:38 Globulin 2.6 gm/dl (2.5-4.0) 01/09/23 08:38 Albumin/Globulin Ratio 1.6 (0.9-2) 01/09/23 08:38 Triglycerides 117 mg/dl (0-150) 01/09/23 08:38 Cholesterol 243 mg/dl (0-200) H 01/09/23 08:38 LDL Cholesterol Direct 187 mg/dl 01/09/23 09:09 LDL Cholesterol, Calc 182 mg/dl 01/09/23 08:38 VLDL Cholesterol, Calc 23 mg/dl (0-30) 01/09/23 08:38 HDL Cholesterol 38 mg/dl 01/09/23 08:38 Cholesterol/HDL Ratio 6.4 (0-5) H 01/09/23 08:38 Lipase 13 U/L (11-82) 01/08/23 14:22 TSH 3.213 uIu/ml (0.300-4.500) 01/09/23 08:21 SARS-CoV-2, RNA, NAAT NEGATIVE (NEGATIVE) 01/08/23 15:08 Impressions Chest X-Ray 01/08/23 14:46 XR chest 1V portable HISTORY: 62 years-old Male Chest pain, nonspecific COMPARISON: None TECHNIQUE: AP view of the chest FINDINGS: Cardiac silhouette is upper limits of normal in size. Mild subsegmental bibasilar atelectasis. There is no pneumothorax, pleural effusion, lobar airspace consolidation or overt pulmonary edema. Degenerative changes of the shoulders and spine. IMPRESSION: No acute process. ACT 112: Negative or not required by law. The above report was generated using voice recognition software. It may contain grammatical, syntax or spelling errors. Electronically signed by: Roddy Atkins M.D. 01/08/2023 3:[address] 01/10/23 08:00 CT chest diagnostic wo con CT DOSE: 534.92 mGy.cm CLINICAL HISTORY: 62 years-old Male with Ascending aortic aneurysm. Follow-up study in a patient with reported thoracic aortic aneurysm TECHNIQUE: Multiaxial CT images of the chest were performed without contrast. A dose lowering technique was utilized adhering to the principles of ALARA. COMPARISON: Chest radiograph 01/08/2022 FINDINGS: No thyroid nodule or lymphadenopathy identified. Mild cardiomegaly with extensive coronary artery calcifications. No pericardial effusion. Fusiform dilation of the ascending thoracic aorta at the level of the main pulmonary artery, 4.5 x 4.4 cm. The pulmonary artery is normal in caliber. No pneumothorax, pleural effusion, airspace consolidation or overt pulmonary edema. Minimal subsegmental bibasilar atelectasis. No suspicious pulmonary nodules or masses. Scattered low suspicion solid pulmonary nodules measure up to 3 mm with fissural nodules measuring up to 4 mm, also likely benign. Central airways are patent. No acute process of the imaged upper abdomen. Small hiatal hernia with trace free fluid. Mildly contracted gallbladder. Unremarkable liver. Gynecomastia. No acute fracture identified. IMPRESSION: 1. No acute intrathoracic abnormality. 2. Mild cardiomegaly with extensive coronary artery calcifications. 3. Fusiform dilation of the ascending thoracic aorta, 4.5 x 4.4 cm. 4. Scattered low suspicion bilateral solid pulmonary nodules measure up to 4 mm which are likely benign. No follow-up recommended in a low-risk patient according to the guidelines below. Please refer to below summary of Fleischner criteria recommendations for follow- up of incidental CT nodules (Jay Leon, Guidelines for management of small pulmonary nodules detected on CT scans: A statement from the Fleischner Society, Radiology 237: [id number].) SOLID NODULES Multiple nodules size: <6 mm * Low risk patients: no routine follow-up * high risk patients: optional CT at 12 months Note: newly detected indeterminate nodule in persons 35 years of age or older. * Low risk patients: minimal or absent history of smoking and/or other known risk factors * high risk patients: history of smoking or of other known risk factors (e.g. first degree relative with lung cancer, or exposure to asbestos, radon, uranium) * if a nodule up to 8 mm is partly solid or is ground glass further follow-up is required after 24 months to exclude possible slow growing adenocarcinoma (LEONARD) ACT 112: Negative or not required by law. Electronically signed by: Roddy Atkins M.D. 01/10/2023 11:35 AM Hospital Course (1) Chest pain, exertional: (2) Elevated troponin: (3) Elevated blood pressure reading: (4) HLD (hyperlipidemia): (5) Depression: Plan Patient is a 62 yr male with H/O hyperlipidemia and recurrent major depressive disorder who presents to ED secondary to exertional chest pain x2 to 3 days. NSTEMI Cardiac Cath:99% mid circumflex occlusion. 40-50% mid LAD S/P Successful PCI of the mid circumflex to OM using a single drug-eluting stent --CXR:No acute process. --Lipid Panel: Total cholesterol 243, LDL 182 HbA1c 5.5 Continue aspirin, Brilinta, Lipitor Appreciate cardiology input Continue metoprolol Plan to discharge home today Advised to follow-up with cardiology in 2 to 4 weeks Ascending thoracic aorta dilation Pulmonary nodule Incidental finding on CT for --CT Chest:No acute intrathoracic abnormality. Mild cardiomegaly with extensive coronary artery calcifications. Fusiform dilation of the ascending thoracic aorta, 4.5 x 4.4 cm. Scattered low suspicion bilateral solid pulmonary nodules measure up to 4 mm which are likely benign. No follow-up recommended in a low- risk patient according to the guidelines below. -- Advised to follow-up with PCP as outpatient HLD On Lipitor Depression continue Prozac DVT Px: Was on IV heparin SCDs Code Status FULL CODE Total Time Total Time Spent Total Time Spent (In Minutes): 56 minutes Discharge Plan Discharge Items Patient Disposition: Home - Self-Care Reason For Visit: NSTEMI Discharge Diagnosis: Non-ST elevated myocardial infarction Ascending aorta enlargement Pulmonary nodules Hyperlipidemia Activity: Per Instructions section Exercise/Sports: Wait until after follow-up appointment Non-emergency contact: Primary Care Provider and Drafting Clerk Call non-emergency contact if: you have any medication questions, your symptoms worsen, your pain is concerning for you and you have a fever Follow-up/Referrals: Wilman Murrell MD [Primary Care Provider] - (Date & Time 01/16/2023 10:40 AM Provider Suraj Galicia MD [facility] ) Diet: Heart Healthy [facility] Attending Provider Instructions: Follow-up with your primary care physician on 01/16/2023 10:40 AM Follow-up with your electronics mechanic apprentice Dr. Zuniga in 2 to 4 weeks --- Follow-up with your primary care physician for further evaluation of pulmonary nodules and ascending aorta enlargement. Seek immediate medical attention if your symptoms reoccur or worsen Please take all medications as instructed on discharge list below. Please call if you have any questions or problems. You can reach a [facility] hospitalist on duty at [facility] 24 hours a day by calling [phone] Home Care: * Take your medications exactly as directed. Don't skip doses. * Remember that recovery after a heart attack takes time. Plan to rest for at lease 4-8 weeks while you recover. Then return to normal activity when your doctor says it's okay. * Ask your doctor about joining a heart rehabilitation program. * Tell your doctor if you are feeling depressed. Feelings of sadness are common after a heart attack, but it is important that you speak to someone if you are feeling overwhelmed by these feelings. * If you are having chest pain, call 911 for an ambulance. Do NOT drive yourself to the hospital. * Ask your family members to learn CPR. * Learn to take your own blood pressure and pulse. Keep a record of your results. Ask your doctor when you should seek emergency medical attention. He or she will tell you which blood pressure reading is dangerous. Lifestyle Changes: * Maintain a healthy weight. Get help to lose any extra pounds. * Cut back on salt. * Limit canned, dried, packaged, and fast foods. * Don't add salt to your food. * Season foods with herbs instead of salt when you cook. * Break the smoking habit. Enroll in a stop-smoking program to improve your chances of success. * Limit fatty foods. * Ask your doctor about having your lipid levels checked regularly. * Build up your activity according to your doctor's recommendation. * Ask your doctor when it's okay to resume sexual activity. * Tell your doctor about any erectile dysfunction (ED) medication you are taking. Some ED medications are not safe if you take certain heart medications. * Try to manage stress. Follow Up: It is important for you to keep your follow up appointments with your medical provider. Addtl [employer] Press Feeder Provider Instructions: ACTIVITY RECOMMENDATIONS: Excess manipulation of the wrist should be avoided for the next 24-48 hours. * No lifting over 2 pounds (approximately a 1/2 gallon of milk) with the utilized arm for 24 hours. * No strenuous activity such as bowling or tennis for 3 days. * Keep the site of the procedure covered with a bandage for 24 hours. *You may shower the day after the procedure. Do not take a tub bath or submerge the puncture site in water for the next 3 days. *Do not operate any motorized equipment for 3 days. SPECIAL CARE INSTRUCTIONS: The site may be slightly bruised and sore following your procedure. Should any of the following occur, contact the . who performed your procedure. 1. Redness/inflammation, swelling, chills, or fever, or colored drainage at procedure site within 3-7 days after your procedure. 2. Coldness, discoloration, ongoing numbness, severe pain, or swelling. Expect mild tingling of hand and tenderness at the puncture site for up to three days. If this persists beyond three days, or other symptoms develop, notify the Dr. who performed your procedure. BLEEDING: If the procedure site on your wrist begins to bleed, do not panic 1. Place 1 or 2 fingers firmly just slightly above the insertion site to stop the bleeding. You may be able to feel your pulse as you hold pressure. 2. Lift your finger after 5 minutes to see if the bleeding has stopped. 3. Once the bleeding has stopped, gently wipe the wrist area clean with a bandage. * If the bleeding from your wrist does not stop after 10 minutes, or if there is a large amount of bleeding or spurting, call 911 (do not drive yourself to the hospital). SKIN IRRITATION: * You may experience some redness and/or swelling in the area where radiation was administered. If any skin irritation occurs, please contact your family physician. FOLLOW UP VISIT: Keep any scheduled doctor appointments. Pending Studies at Discharge: No Stand-Alone Forms: My [facility], Smoking Cessation Medications and DC Order Prescriptions: New atorvastatin 40 mg Tablet 80 mg PO QAM Qty: 30 2RF aspirin [Children's Aspirin] 81 mg Tablet,Chewable 81 mg PO DAILY Qty: 30 2RF metoprolol tartrate 25 mg Tablet 25 mg PO BID Qty: 60 2RF Brilinta 90 mg Tablet 90 mg PO BID Qty: 60 2RF Continued fluoxetine 10 mg capsule 10 mg PO QAM Prevagen 1 tab PO QAM Discharge Orders: Discharge Order (Routine); Ordered 01/10/23 Ordered By: Eduard Rosario Admission Data Admit Date/Time: 01/08/23 16:04 Attending Provider: Eduard Rosario Admit Provider: Rodger Duque Primary Care Provider: Wilman Murrell Other Providers: Ji Ge ; Rodger Duque
== END 2023-01-10 14:32 | disposition home or self-care (01) | DRG 247 ==
LOC: ED 14:04 → SUATTDRO 16:04 → 2S 16:04